=== PATIENT | male | born 1990 | race Caucasian/White ===

== ENCOUNTER 2018-10-25 16:54 | Emergency (ER) | payer SELFPAY ==
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
[2018-10-25] MEDS ORDERED: Naproxen 500 MG Tab PO ONE (18:07)
--- NOTE | 2018-10-26 06:59 | CR ---
Left knee: Four views of the left knee were obtained. Comparison: No prior left knee exam. No joint effusion is seen. Medial and lateral joint spaces are maintained in height. No fracture, dislocation or other bony abnormality is seen. Impression: 1. No abnormality is identified on left knee exam. Diagnostic code #1
== END 2018-10-25 18:55 | disposition home or self-care (01) ==
LOC: JD.ED 16:54
DX: S83.92XA Sprain of unspecified site of left knee, initial encounter (principal); F17.210 Nicotine dependence, cigarettes, uncomplicated; V86.96XA Unspecified occupant of dirt bike or motor/cross bike injured in nontraffic accident, initial encounter
CPT/HCPCS: 73564; 99284; A9270; 99283

== ENCOUNTER 2018-12-25 19:53 | Emergency (ER) | payer OTHER ==
[2018-12-25] MEDS ORDERED: Lidocaine 1% 10 ML MDV INJECT ONE ×2 (20:27→20:42)
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
[2018-12-25] MEDS ORDERED: Cephalexin 500 MG Cap PO ONE (22:12)
--- NOTE | 2018-12-26 10:16 | CR ---
Right fifth finger: Four views of the right fifth finger were obtained. Comparison: No previous study. Soft tissue swelling and soft tissue injury is identified within the fifth digit. No discrete fracture or other bony abnormality is appreciated. Details are slightly limited due to overlying bandage. Impression: 1. Soft tissue findings. Overlying bandage. 2. No discrete bony abnormality is identified. Diagnostic code #3
== END 2018-12-25 22:38 | disposition home or self-care (01) ==
LOC: JD.ED 19:53
DX: S61.216A Laceration without foreign body of right little finger without damage to nail, initial encounter (principal); F17.210 Nicotine dependence, cigarettes, uncomplicated; W22.8XXA Striking against or struck by other objects, initial encounter
CPT/HCPCS: 12001; 73140; 99283; A9270; J2001; 12011; 29125

== ENCOUNTER 2020-05-28 20:37 | Emergency (ER) | payer OTHER ==
--- NOTE | 2020-05-28 21:12 | EDM.PDOC ---
ED HPI GENERAL MEDICAL PROBLEM - General Chief Complaint: Lower Extremity Injury/Pain Stated Complaint: LEFT FOOT INJURY Time Seen by Provider: 05/28/20 20:52 Source of Information: Reports: Patient History Limitations: Reports: No Limitations - History of Present Illness INITIAL COMMENTS - FREE TEXT/NARRATIVE: Mr. Flynn is a pleasant 29-year-old man who now presents to the ED with left foot pain after accidentally dropping a heavy metal beam on it around 16:00 this afternoon. The patient states that he was not at work, and that he was wearing boots. He Joshua wrap to the foot, however, he did not take any [id number] medications prior to coming to the ED. No prior left foot injury, the patient denies any other injuries. Here in the ED, the patient's initial BP is found to be elevated at 171/86. He is otherwise hemodynamically stable, afebrile, saturating 95% on room air. Other than today's left foot injury, the patient denies having a recent fever, chills, sore throat, ear pain, nasal or sinus congestion, cough, dyspnea, chest pain, palpitations, nausea, vomiting, constipation, diarrhea, abdominal pain, urinary symptoms, recent weight gain or weight loss, recent bloody bowel movements or black bowel movements, recent joint aches, headaches, or rashes. The patient does not have a PCP. He did not receive an influenza vaccine this season, and declined an offer to receive one here today. Left Foot Pain Score (Numeric/FACES): 10 - Related Data Allergies Allergy/AdvReac Type Severity Reaction Status Date / Time No Known Allergies Allergy Verified 05/28/20 20:44 Home Meds: Home Meds . [No Known Home Meds] 10/25/18 [History] Past Medical History - Past Surgical History Musculoskeletal Surgical History: Reports: Arthroscopic Knee (left) Social & Family History - Tobacco Use Tobacco Use Status *Q: Current Every Day Tobacco User Tobacco Use Within Last Twelve Months: Smokeless Tobacco (Chews 2 cans per week), Vaping (Nicotine) Years of Tobacco use: 10 Packs/Tins Daily: 1 Packs/Tins Daily Comment: Down from 2 ppd - Caffeine Use Caffeine Use: Reports: Coffee, Energy Drinks, Soda, Tea - Alcohol Use Alcohol Use History: Yes Alcohol Use Frequency: Socially - Recreational Drug Use Recreational Drug Use: No - Living Situation & Occupation Living situation: Reports: , Alone Occupation: Employed ([employer]) Review of Systems - Review of Systems Review Of Systems: Comprehensive ROS is negative, except as noted in HPI. ED EXAM, GENERAL - Physical Exam Exam: See Below Exam Limited By: No Limitations General Appearance: Alert, WD/WN, No Apparent Distress Extremities: Other (There is an abrasion to the dorsal aspect of the patient's foot with minimal associated erythema or swelling. There is some tenderness to palpation of the dorsal aspect of his foot, and while there is no tenderness to palpation of the plantar aspect of his foot, pain can be induced in the foot with bearing weight. Neurovascular status of the left lower extremity is intact.) Course - Vital Signs Last Recorded V/S: Last Vital Signs Temp 36.3 C 05/28/20 20:41 Pulse 95 05/28/20 20:41 Resp 16 05/28/20 20:41 BP 171/86 H 05/28/20 20:41 Pulse Ox 95 05/28/20 20:41 - Orders/Labs/Meds Orders: Active Orders 24 hr Category Date Time Status Foot Comp Min 3V Lt [CR] Stat Exams 05/28/20 21:08 Taken Meds: Medications Discontinued Medications Generic Name Dose Route Start Last Admin Trade Name Yunierq PRN Reason Stop Dose Admin Ibuprofen 600 mg 05/28/20 21:25 05/28/20 21:36 Motrin PO 05/28/20 21:26 600 mg ONETIME ONE Administration - Re-Assessments/Exams Free Text/Narrative Re-Assessment/Exam: 05/28/20 21:10 As above, the patient suffered an injury to the dorsal aspect of his left foot when a metal beam fell on it this afternoon. He has minimal swelling and a small abrasion to the dorsal aspect of his foot, with some tenderness to palpation or with bearing weight. I have ordered x-rays of his left foot to evaluate. In the meantime, the patient would like something for pain, however, he drove himself here, and he also expects to go to work in the morning - he works on heavy equipment, therefore I am somewhat reluctant to order an opioid. The patient is calling to see if he can get a ride home. 05/28/20 21:29 The patient elected to take some ibuprofen for pain. 05/28/20 21:40 4-view radiographs of the left foot are read by [facility] as "No acute fracture. Follow-up imaging recommended in 7-14 days if clinical concern for fracture persists." 05/28/20 21:42 X-ray results discussed with the patient. He appears to have a contusion to the dorsal aspect of his foot. I recommended ice and elevation for the next couple of days to help minimize swelling and pain, and to take [id number] ibuprofen as needed for discomfort. Departure - Departure Time of Disposition: 21:42 Disposition: Home, Self-Care 01 Condition: Good Clinical Impression: Contusion of left foot - Discharge Information *PRESCRIPTION DRUG MONITORING PROGRAM REVIEWED*: Not Applicable *COPY OF PRESCRIPTION DRUG MONITORING REPORT IN PATIENT CINDY: Not Applicable Referrals: PCP,None [Primary Care Provider] - Forms: ED Department Discharge Additional Instructions: You were seen in the emergency room for left foot pain after a metal beam fell on it this afternoon. Work-up in the ER included x-rays of your left foot, which found no broken bones. Based on your history, physical exam, and ER tests, you have most likely contused (bruised) your left foot. We recommend that you ice and elevate your left foot as much as possible over the next 2 to 3 days, to help minimize swelling and pain. You may take abeg-erh-[id number] ibuprofen as needed for discomfort. You may walk on your left foot as tolerated. If you continue to have left foot pain, we recommend that you follow-up in the clinic for repeat x-rays in 7 to 14 days. If any other problems, please do not hesitate to return to the ER. Sepsis Event Note (ED) - Evaluation Sepsis Screening Result: No Definite Risk - Focused Exam Vital Signs: Vital Signs Temp Pulse Resp BP Pulse Ox 05/28/20 20:41 36.3 C 95 16 171/86 H 95 - My Orders Last 24 Hours: My Active Orders 05/28/20 21:08 Foot Comp Min 3V Lt [CR] Stat - Assessment/Plan Last 24 Hours: My Active Orders 05/28/20 21:08 Foot Comp Min 3V Lt [CR] Stat
[2020-05-28] MEDS ORDERED: Ibuprofen 600 MG Tab PO ONE (21:25)
--- NOTE | 2020-05-29 08:05 | CT ---
PROCEDURE INFORMATION: Exam: CT Head Without Contrast Exam date and time: 05/28/2020 11:32 PM Age: 43 years old Clinical indication: Pain; Headache; Migraine; Aura effect not specified TECHNIQUE: Imaging protocol: Computed tomography of the head without contrast. Radiation optimization: All CT scans at this facility use at least one of these dose optimization techniques: automated exposure control; mA and/or kV adjustment per patient size (includes targeted exams where dose is matched to clinical indication); or iterative reconstruction. COMPARISON: No relevant prior studies available. FINDINGS: Brain: Normal. No hemorrhage. Unremarkable white matter. No mass effect. Cerebral ventricles: No ventriculomegaly. Bones/joints: Unremarkable. No acute fracture. Paranasal sinuses: Visualized sinuses are unremarkable. No fluid levels. Mastoid air cells: Visualized mastoid air cells are well aerated. Soft tissues: Unremarkable. IMPRESSION: No acute intracranial abnormality. Thank you for allowing us to participate in the care of your patient. Dictated and Authenticated by: Tyrone Do MD 05/28/2020 11:55 PM Central Time ([place] & [place]) [facility]
== END 2020-05-28 21:51 | disposition home or self-care (01) ==
LOC: JD.ED 20:37
DX: S90.32XA Contusion of left foot, initial encounter (principal); F17.210 Nicotine dependence, cigarettes, uncomplicated; W20.8XXA Other cause of strike by thrown, projected or falling object, initial encounter
CPT/HCPCS: 73630; 99283; A9270

== ENCOUNTER 2020-06-06 10:14 | Emergency (ER) | payer OTHER ==
--- NOTE | 2020-06-06 11:31 | EDM.PDOC ---
ED HPI GENERAL MEDICAL PROBLEM - General Chief Complaint: Lower Extremity Injury/Pain Stated Complaint: LT FOOT INJURY NOT BETTER Time Seen by Provider: 06/06/20 10:33 Source of Information: Reports: Patient History Limitations: Reports: No Limitations - History of Present Illness INITIAL COMMENTS - FREE TEXT/NARRATIVE: The patient presents with left foot pain. The patient dropped a 100 pound bar on his left foot about 8 days ago. He was seen here and an x-ray was done and there was no fracture. He has been limping and walking on the side of his foot. Yesterday he felt and heard a pop in his foot and had more pain. He still has edema. Onset: Sudden Duration: Week(s): Location: Reports: Lower Extremity, Left (foot) Quality: Reports: Sharp Severity: Moderate Improves with: Reports: Immobilization Worsens with: Reports: Movement Context: Reports: Trauma (Dropped weight on foot) Associated Symptoms: Reports: No Other Symptoms Left Foot Pain Score (Numeric/FACES): 8 - Related Data Allergies Allergy/AdvReac Type Severity Reaction Status Date / Time No Known Allergies Allergy Verified 06/06/20 10:25 Home Meds: Home Meds Hydrocodone/Acetaminophen [Hydrocodone-Acetamin 5-325 mg] 1 - 2 each PO Q6HR PRN #10 tablet 06/06/20 [Rx] Past Medical History - Past Health History Medical/Surgical History: Denies Medical/Surgical History - Past Surgical History Musculoskeletal Surgical History: Reports: Arthroscopic Knee Social & Family History - Tobacco Use Tobacco Use Status *Q: Current Every Day Tobacco User Years of Tobacco use: 8 Packs/Tins Daily: 1 - Caffeine Use Caffeine Use: Reports: Coffee, Energy Drinks - Recreational Drug Use Recreational Drug Use: No - Living Situation & Occupation Living situation: Reports: , Alone Occupation: Employed ([employer]) Review of Systems - Review of Systems Review Of Systems: See Below Constitutional: Reports: No Symptoms Eyes: Reports: No Symptoms Ears: Reports: No Symptoms Nose: Reports: No Symptoms Mouth/Throat: Reports: No Symptoms Respiratory: Reports: No Symptoms Cardiovascular: Reports: No Symptoms GI/Abdominal: Reports: No Symptoms Genitourinary: Reports: No Symptoms Musculoskeletal: Reports: Other (Left foot swelling and pain) ED EXAM, GENERAL - Physical Exam Exam: See Below Exam Limited By: No Limitations General Appearance: Alert, No Apparent Distress Ears: Normal External Exam Nose: Normal Inspection Head: Atraumatic, Normocephalic Neck: Normal Inspection Respiratory/Chest: No Respiratory Distress Extremities: Other (Moderate edema to the front of the left foot. Mild tenderness. Good sensation and pulses to the foot.) Neurological: Alert, Oriented Course - Vital Signs Last Recorded V/S: Last Vital Signs Temp 98.8 F 06/06/20 10:26 Pulse 75 06/06/20 10:26 Resp 20 06/06/20 10:26 BP 144/56 H 06/06/20 10:26 Pulse Ox 100 06/06/20 10:26 - Orders/Labs/Meds Orders: Active Orders 24 hr Category Date Time Status Foot wo Cont Lt [CT] Stat Exams 06/06/20 10:44 Taken Durable Medical Equipment for Discharge [DME for Oth 06/06/20 11:57 Ordered Discharge] [COMM] Stat - Re-Assessments/Exams Free Text/Narrative Re-Assessment/Exam: 06/06/20 11:32 I have ordered a CT of his foot. 06/06/20 11:[address] shows fracture of 2nd metatarsal. I will get him a walking boot and crutches. I will have him follow up with Dr Frank. Departure - Departure Time of Disposition: 12:00 Disposition: Home, Self-Care 01 Condition: Good Clinical Impression: Fracture of metatarsal of left foot, closed Qualifiers: Encounter type: initial encounter Metatarsal bone: second Fracture alignment: displaced Qualified Code(s): S92.322A - Displaced fracture of second metatarsal bone, left foot, initial encounter for closed fracture - Discharge Information *PRESCRIPTION DRUG MONITORING PROGRAM REVIEWED*: No *COPY OF PRESCRIPTION DRUG MONITORING REPORT IN PATIENT CINDY: No Prescriptions: Hydrocodone/Acetaminophen [Hydrocodone-Acetamin 5-325 mg] 1 - 2 each PO Q6HR PRN #10 tablet PRN Reason: Pain Referrals: PCP,None [Primary Care Provider] - Brenton Frank MD [Physician] - 1 Week Forms: ED Department Discharge, ED Return to Work/School Form Additional Instructions: Ice your foot for 15 minutes 3 times per day for 2 days. Take tylenol or motrin for pain. If that does not help, try the hydrocodone. Follow up with Dr Frank. Please return if you are worse. Sepsis Event Note (ED) - Evaluation Sepsis Screening Result: No Definite Risk - Focused Exam Vital Signs: Vital Signs Temp Pulse Resp BP Pulse Ox 06/06/20 10:26 98.8 F 75 20 144/56 H 100 - My Orders Last 24 Hours: My Active Orders 06/06/20 10:44 Foot wo Cont Lt [CT] Stat 06/06/20 11:57 Durable Medical Equipment for Discharge [DME for Discharge] [COMM] Stat - Assessment/Plan Last 24 Hours: My Active Orders 06/06/20 10:44 Foot wo Cont Lt [CT] Stat 06/06/20 11:57 Durable Medical Equipment for Discharge [DME for Discharge] [COMM] Stat
--- NOTE | 2020-06-06 12:26 | CT ---
PROCEDURE INFORMATION: Exam: CT Left Lower Extremity Without Contrast, Foot Exam date and time: 06/06/2020 10:50 AM Age: 29 years old Clinical indication: Injury or trauma; Other: Dropped 100 lbs weight on foot; Crushing; Left; Patient HX: Dropped 100 lb weight on foot TECHNIQUE: Imaging protocol: CT of the Left lower extremity without contrast was performed. Exam focused on the foot. Radiation optimization: All CT scans at this facility use at least one of these dose optimization techniques: automated exposure control; mA and/or kV adjustment per patient size (includes targeted exams where dose is matched to clinical indication); or iterative reconstruction. COMPARISON: CR Foot Comp Min 3V Lt 05/28/2020 9:03 PM FINDINGS: Bones/joints: There is a fracture noted involving the mid to distal aspect of the 2nd metatarsal in good alignment minimally displaced. Displacement is 3.5 mm in the superior/inferior direction. Bone is well aligned. Soft tissues: There is increased tissue surrounding the fracture suggestive of a hematoma. IMPRESSION: Fracture 2nd metatarsal. Thank you for allowing us to participate in the care of your patient. Dictated and Authenticated by: Melchor Ferrera MD 06/06/2020 12:37 PM Central Time ([place] & [place]) [place]
== END 2020-06-06 12:20 | disposition home or self-care (01) ==
LOC: JD.ED 10:14
DX: S92.322A Displaced fracture of second metatarsal bone, left foot, initial encounter for closed fracture (principal); F17.210 Nicotine dependence, cigarettes, uncomplicated; X50.0XXA Overexertion from strenuous movement or load, initial encounter
CPT/HCPCS: 73700-26-LT; 73700-LT; 99283; 99283-25